=== PATIENT | female | born 1940 | race Caucasian/White ===

== ENCOUNTER 2018-08-02 12:46 | Outpatient (CLI) | payer MEDICARE, BC ==
[~2018-08-02 12:46] MED LIST: Iopamidol 370 76% 100 ML VIAL ONE
--- NOTE | 2018-08-02 15:02 | CT ---
CTA ANGIO CHEST WITH AND WITHOUT CONTRAST: HISTORY: Dyspnea. Right breast cancer with right mastectomy. FINDINGS: There is good contrast opacification in the pulmonary arterial vasculature without filling defects to suggest pulmonary embolism. The thoracic aorta is well opacified without aneurysm or dissection. N o pleural or pericardial effusions are seen. There is a 10 mm mediastinal lymph node in the precarin al region. The tracheobronchial tree is patent. No pneumothoraces, focal areas of consolidation, august ng nodules, or masses are identified. Degenerative changes are present in the spine. IMPRESSION: No CT evidence of pulmonary embolism. POS: [facility]
== END 2018-08-02 12:47 | disposition home or self-care (01) ==
LOC: CT 12:46
PROVIDERS: ATTEND Internal Medicine Critical Care Medicine
DX: I26.99 Other pulmonary embolism without acute cor pulmonale (principal); R06.00 Dyspnea, unspecified
CPT/HCPCS: 71275; 82565

== ENCOUNTER 2022-01-20 08:16 | Outpatient (CLI) | payer MEDICARE, BC | END 2022-01-20 08:17 | disposition home or self-care (01) | LOC: RAD 08:16 | PROVIDERS: ATTEND Internal Medicine Critical Care Medicine | DX: R06.00 Dyspnea, unspecified (principal); J44.9 Chronic obstructive pulmonary disease, unspecified | CPT/HCPCS: 71046 ==

== ENCOUNTER 2022-10-07 12:49 | Outpatient (CLI) | payer MEDICARE, BC | END 2022-10-07 12:50 | disposition home or self-care (01) | LOC: BICCT 12:49 | PROVIDERS: ATTEND Internal Medicine Cardiovascular Disease | DX: R06.02 Shortness of breath (principal); R06.00 Dyspnea, unspecified; J84.10 Pulmonary fibrosis, unspecified; J47.9 Bronchiectasis, uncomplicated; J98.4 Other disorders of lung | CPT/HCPCS: 71250 ==

== ENCOUNTER 2022-11-16 13:58 | Outpatient (CLI) | payer MEDICARE, BC | END 2022-11-16 13:59 | disposition home or self-care (01) | LOC: RAD 13:58 | PROVIDERS: ATTEND Internal Medicine Critical Care Medicine | DX: R06.00 Dyspnea, unspecified (principal); J44.9 Chronic obstructive pulmonary disease, unspecified | CPT/HCPCS: 71046 ==

== ENCOUNTER 2022-12-23 12:58 | Outpatient (CLI) | payer MEDICARE, BC | END 2022-12-23 12:59 | disposition home or self-care (01) | LOC: BICCT 12:58 | PROVIDERS: ATTEND Internal Medicine Critical Care Medicine | DX: I26.99 Other pulmonary embolism without acute cor pulmonale (principal) | CPT/HCPCS: 71250; 82565 ==

== ENCOUNTER 2023-01-06 10:03 | Outpatient (CLI) | payer MEDICARE, BC | END 2023-01-06 10:04 | disposition home or self-care (01) | LOC: NM 10:03 | PROVIDERS: ATTEND Internal Medicine Critical Care Medicine | DX: I26.99 Other pulmonary embolism without acute cor pulmonale (principal) | CPT/HCPCS: 71046; 78451; A9540 ==